=== PATIENT | male | born 1990 | race Caucasian/White ===

== ENCOUNTER 2021-08-13 04:19 | Emergency (ER) | payer OTHER ==
[~2021-08-13] VITALS: Ht 167.6 cm; Wt 74.8 kg
[2021-08-13] MEDS ORDERED: PHENERGAN25 M3 PO (06:57)
== END 2021-08-13 07:01 | disposition home or self-care (01) ==
LOC: ED 04:19
DX: R11.2 Nausea with vomiting, unspecified (principal)